=== PATIENT | male | born 1960 | race African-American/Black ===

== ENCOUNTER 2020-02-26 11:37 | Emergency (ER) | payer OTHER ==
[~2020-02-26] VITALS: Ht 182.9 cm; Wt 49.9 kg
[2020-02-26 11:40] VITALS: BP 90/60
--- NOTE | 2020-02-26 11:45 | NUR ---
ED Nurse Note: Pt brought in by ambulance from SNF d/t generalized weakness and diarrhea x a few days. SNF staff report patient losing weight recently. Pt is DNR. Respiraitons even and unlabored on room air. Vitals stable as documented. A+Ox4, speaking in complete sentences. Pt is bedbound. Sacral partial thickness injury noted on sacral/buttocks area
--- NOTE | 2020-02-26 12:23 | NUR ---
ED Nurse Note: Xray at bedside.
[2020-02-26 12:25] LABS: HEMATOCRIT 46.5 % (42.0-52.0); HEMOGLOBIN 14.7 G/DL (14.2-18.0); MEAN CORPUSCULAR VOLUME 86 FL (80-99); PLATELET COUNT 221 K/UL (150-450); RED BLOOD COUNT 5.43 M/UL (4.70-6.10); RED CELL DISTRIBUTION WIDTH 14.5 % (11.6-14.8); WHITE BLOOD COUNT 3.1 K/UL (4.8-10.8)
[2020-02-26 12:58] LABS: ANION GAP 12 mmol/L (5-15); BLOOD UREA NITROGEN 20 mg/dL (7-18); CARBON DIOXIDE 24 MMOL/L (21-32); CHLORIDE 96 MMOL/L (98-107); POTASSIUM 3.7 MMOL/L (3.5-5.1); SODIUM 132 MMOL/L (136-145)
[2020-02-26 13:02] LABS: ALANINE AMINOTRANSFERASE 38 U/L (12-78); ALBUMIN 2.8 G/DL (3.4-5.0); ALBUMIN/GLOBULIN RATIO 0.6 (1.0-2.7); ALKALINE PHOSPHATASE 113 U/L (46-116); ASPARTATE AMINO TRANSFERASE 44 U/L (15-37); BILIRUBIN,TOTAL 0.4 MG/DL (0.2-1.0)
--- NOTE | 2020-02-26 13:24 | NUR ---
ED Nurse Note: pt had diarrhea. Pt cleaned and linen changed. Urine collected and sent to lab
[2020-02-26 13:36] VITALS: BP 111/72
[2020-02-26 13:54] LABS: APPEARANCE,URINE SLIGHTLY CLOUDY; BILIRUBIN, URINE 1+ (NEGATIVE); GLUCOSE, URINE (UA) NEGATIVE (NEGATIVE); KETONES,URINE 2+ (NEGATIVE); LEUKOCYTE ESTERASE ,URINE 1+ (NEGATIVE); NITRITE,URINE NEGATIVE (NEGATIVE); PH,URINE 6 (4.5-8.0); PROTEIN,URINE 2+ (NEGATIVE); UROBILINOGEN,URINE NORMAL MG/DL (0.0-1.0)
[2020-02-26 13:55] LABS: COLOR,URINE YELLOW
[2020-02-26] MEDS ORDERED: MEPRON750 MG/51 ORAL (14:06)
[2020-02-26] MEDS ORDERED: COLACE100 MG ORAL (14:07)
[2020-02-26] MEDS ORDERED: CRANBERRY200 M1 PO (14:07)
[2020-02-26] MEDS ORDERED: BISACODYL5 MG ORAL (14:08)
[2020-02-26] MEDS ORDERED: FERROUS SULFAT325 MG ORAL (14:08)
[2020-02-26] MEDS ORDERED: DIPHENHYDRAMINE25 M1 ORAL (14:08)
[2020-02-26] MEDS ORDERED: VITAMIN B-12500 MCG ORAL (14:08)
[2020-02-26] MEDS ORDERED: TRAMADOL HCL100 M2 ORAL (14:15)
[2020-02-26] MEDS ORDERED: LOPERAMIDE2 MG PO (14:15)
[2020-02-26] MEDS ORDERED: VITAMIN C500 M1 ORAL (14:15)
[2020-02-26] MEDS ORDERED: MILK OF MA400 MG/51 ORAL (14:15)
[2020-02-26] MEDS ORDERED: ACETAMINOPHEN325 M1 ORAL (14:15)
[2020-02-26] MEDS ORDERED: MAALOX ADVANCE770 ML PO (14:15)
[2020-02-26] MEDS ORDERED: VITAMIN B-1100 MG ORAL (14:15)
[2020-02-26] MEDS ORDERED: MULTIVITAMINS1 EA13 ORAL (14:15)
[2020-02-26] MEDS ORDERED: FLEET ENEMA133 ML RECTAL (14:15)
[2020-02-26] MEDS ORDERED: PROTONIX40 MG ORAL (14:15)
[2020-02-26] MEDS ORDERED: ZINC SULFATE220 M1 ORAL (14:15)
[2020-02-26] MEDS ORDERED: GLUCAGON W/DILUE1 MG IJ (14:15)
--- NOTE | 2020-02-26 15:30 | NUR ---
ED Nurse Note: spoke with sam, was told that the patient's new transpo is ambulife @1645 with call the car
[2020-02-26 15:31] VITALS: BP 103/71
--- NOTE | 2020-02-26 15:37 | NUR ---
ED Nurse Note: spoke with the DON [facility] and the pt's daughter. Pt is to go back to [place] shortly.
--- NOTE | 2020-02-26 15:38 | NUR ---
ED Nurse Note: report given to RACIEL Gordon.
--- NOTE | 2020-02-26 15:52 | Emergency Room Report ---
History of Present Illness General Chief Complaint: Generalized Weakness Source: Patient Present Illness HPI Disclaimer: Please note that this report is being documented using DRAGON technology. This can lead to erroneous entry secondary to incorrect interpretation by the dictating instrument. HPI: This is a 59-year-old male history of HIV who presents for generalized weakness. He states has been generally weak for the past couple of days. He is tolerating oral intake. He denies any fevers or abdominal pain. No shortness of breath nausea or vomiting. Since from his care home facility. I spoke with patient's primary care doctor who did request laboratory studies. Allergies: Coded Allergies: PENICILLINS (Verified Allergy, Unknown, 02/26/20) SULFAMETHOXAZOLE (Verified Allergy, Unknown, 02/26/20) TRIMETHOPRIM (Verified Allergy, Unknown, 02/26/20) COVID-19 Screening Contact w/high risk pt: No Experienced COVID-19 symptoms?: No COVID-19 Testing performed [employer]WORK ADMINISTRATOR: No Patient History Reviewed Nursing Documentation: PMH: Agreed; PSxH: Agreed Nursing Documentation-PMH Past Medical History: No History, Except For Hx Diabetes: Yes Review of Systems All Other Systems: negative except mentioned in HPI Physical Exam Vital Signs Date Time Temp Pulse Resp B/P (MAP) Pulse Ox O2 Delivery O2 Flow Rate FiO2 02/26/20 11:36 86 20 90/60 (70) 99 Room Air 02/26/20 11:40 98.6 Sp02 EP Interpretation: reviewed, normal General Appearance: no apparent distress, cachetic Head: normocephalic, atraumatic Eyes: bilateral eye PERRL, bilateral eye EOMI ENT: hearing grossly normal, moist mucus membranes Neck: full range of motion, supple Respiratory: lungs clear, normal breath sounds, no rhonchi, no respiratory distress, no retraction, no wheezing Cardiovascular #1: normal peripheral pulses, regular rate, rhythm, no murmur Gastrointestinal: non tender, soft, non-distended, no guarding Neurologic: alert, oriented x3, no focal defects Skin: normal color, warm/dry Medical Decision Making Diagnostic Impression: Primary Impression: Episode of generalized weakness ER Course Patient presented with generalized weakness. He denied any pain to me. Vital signs were stable. He was no acute distress. IV fluids given in the ER. Labo ratory studies showed no evidence of leukocytosis, and electrolytes showed no significant abnormalities besides mild hyponatremia. He was given multiple doses of IV fluids in the ER. After speaking with the primary care doctor we first considered admission but at this time felt patient could be discharged back to his care home facility. He had no abdominal pain. Low suspicion for surgical abdominal disease. Will be discharged back to care home facility. He was tolerating oral intake in the ER. Laboratory Tests Test 02/26/20 12:00 02/26/20 13:20 White Blood Count 3.1 K/UL (4.8-10.8) L Red Blood Count 5.43 M/UL (4.70-6.10) Hemoglobin 14.7 G/DL (14.2-18.0) Hematocrit 46.5 % (42.0-52.0) Mean Corpuscular Volume 86 FL (80-99) Mean Corpuscular Hemoglobin 27.1 PG (27.0-31.0) Mean Corpuscular Hemoglobin Concent 31.6 G/DL (32.0-36.0) L Red Cell Distribution Width 14.5 % (11.6-14.8) Platelet Count 221 K/UL (150-450) Mean Platelet Volume 9.7 FL (6.5-10.1) Neutrophils (%) (Auto) % (45.0-75.0) Lymphocytes (%) (Auto) % (20.0-45.0) Monocytes (%) (Auto) % (1.0-10.0) Eosinophils (%) (Auto) % (0.0-3.0) Basophils (%) (Auto) % (0.0-2.0) Differential Total Cells Counted 100 Neutrophils % (Manual) 89 % (45-75) H Lymphocytes % (Manual) 10 % (20-45) L Monocytes % (Manual) 1 % (1-10) Eosinophils % (Manual) 0 % (0-3) Basophils % (Manual) 0 % (0-2) Band Neutrophils 0 % (0-8) Platelet Estimate Adequate Platelet Morphology Normal Hypochromasia 1+ Anisocytosis 1+ Sodium Level 132 MMOL/L (136-145) L Potassium Level 3.7 MMOL/L (3.5-5.1) Chloride Level 96 MMOL/L (98-107) L Carbon Dioxide Level 24 MMOL/L (21-32) Anion Gap 12 mmol/L (5-15) Blood Urea Nitrogen 20 mg/dL (7-18) H Creatinine 1.0 MG/DL (0.55-1.30) Estimated Glomerular Filtration Rate > 60 mL/min (>60) Glucose Level 87 MG/DL (74-106) Calcium Level 8.0 MG/DL (8.5-10.1) L Total Bilirubin 0.4 MG/DL (0.2-1.0) Aspartate Amino Transferase (AST) 44 U/L (15-37) H Alanine Aminotransferase (ALT) 38 U/L (12-78) Alkaline Phosphatase 113 U/L (46-116) Total Protein 7.4 G/DL (6.4-8.2) Albumin 2.8 G/DL (3.4-5.0) L Globulin 4.6 g/dL Albumin/Globulin Ratio 0.6 (1.0-2.7) L Lipase 190 U/L (73-393) Urine Color Yellow Urine Appearance Slightly cloudy Urine pH 6 (4.5-8.0) Urine Specific [place] 1.015 (1.005-1.035) Urine Protein 2+ (NEGATIVE) H Urine Glucose (UA) Negative (NEGATIVE) Urine Ketones 2+ (NEGATIVE) H Urine Blood 1+ (NEGATIVE) H Urine Nitrite Negative (NEGATIVE) Urine Bilirubin 1+ (NEGATIVE) H Urine Ictotest Negative (NEGATIVE) Urine Urobilinogen Normal MG/DL (0.0-1.0) Urine Leukocyte Esterase 1+ (NEGATIVE) H Urine RBC 2-4 /HPF (0 - 0) H Urine WBC 2-4 /HPF (0 - 0) Urine Squamous Epithelial Cells Occasional /LPF Urine Bacteria Occasional /HPF (NONE) Urine Mucus Few /LPF (NONE/OCC) H Microbiology Date/Time Source Procedure Growth Status 02/26/20 12:31 Nasopharynx SARS-CoV-2 RdRp Gene Assay - Final Complete Last Vital Signs Date Time Temp Pulse Resp B/P (MAP) Pulse Ox O2 Delivery O2 Flow Rate FiO2 02/26/20 15:31 98.1 92 20 103/71 99 Room Air Disposition: HOME, SELF-CARE Condition: Stable Referrals: Santo Glass MD (PCP) Patient Instructions: Weakness Additional Instructions: Patient is instructed to follow-up with her primary care doctor, primary care clinic or on license of [facility] clinic in 1 to 2 days. Patient instructed to return for any w orsening symptoms or concerns. Jack Riojas M.D. Feb 26, 2020 15:52
--- NOTE | 2020-02-26 16:03 | Diagnostic Imaging Report ---
Indication: Shortness of breath Technique: One view of the chest Comparison: none Findings: Lungs and pleural spaces are clear. Heart size is normal. Impression: No acute process
--- NOTE | 2020-02-26 16:50 | NUR ---
ED Nurse Note: ambulife transpo arrived. gave report to the ems, that pt. is returning back to [facility] because he was cleared by his pmd and ermd. Handed over the discharge paperwork and fs to the ems. Told ems that the [facility] of [place] receievd the report that pt is returning back to the facility. pt. left with all his belongings and vss.
[2020-02-26 17:21] VITALS: BP 111/83
== END 2020-02-26 16:50 | disposition home or self-care (01) ==
LOC: EDBD 11:37 → EMR 12:05 → CANBEDREQ 14:20 → EMR 16:50
DX: R53.1 Weakness (principal); B20 Human immunodeficiency virus [HIV] disease; Z88.0 Allergy status to penicillin; Z88.2 Allergy status to sulfonamides; E11.9 Type 2 diabetes mellitus without complications; E87.1 Hypo-osmolality and hyponatremia
CPT/HCPCS: 36415; 71045; 80053; 81003; 83690; 85007; 85025; 96360; 96361; J7030; U0002; Z7502; 99284